=== PATIENT | male | born 1960 | race African-American/Black ===

== ENCOUNTER 2017-08-04 08:22 | Emergency (ER) | payer BC, SELFPAY ==
[2017-08-04] MEDS ORDERED: Labetalol 5 MG/ML 5 ML Syringe IVPUSH ONE ×2 (08:44→09:14)
[2017-08-04] MEDS ORDERED: Sodium Chloride 0.9% 1,000 ML IV SCH (08:45)
--- NOTE | 2017-08-04 08:45 | EDM.PDOC ---
ED HPI GENERAL MEDICAL PROBLEM - General Chief Complaint: Headache Stated Complaint: HEADACHE DIZZINESS AND PAIN RT Time Seen by Provider: 08/04/17 08:45 Source of Information: Reports: Patient - History of Present Illness INITIAL COMMENTS - FREE TEXT/NARRATIVE: HISTORY AND PHYSICAL: History of present illness: [Patient presents with muscle spasm left shoulder girdle rates pain 4 out of 10 nonradiating worsened by moving his left arm reproduce pain with palpation of infraspinatus and essentially the whole trapezius distribution on the left. He states that previously he was having trouble to right side several months ago. No fever nausea vomiting diarrhea constipation chest pain shortness breath headache dizziness palpitation about a urine symptoms Patient has not been taking his blood pressure medication over the last couple days ] Review of systems: As per history of present illness and below otherwise all systems reviewed and negative. Past medical history: As per history of present illness and as reviewed below otherwise noncontributory. Surgical history: As per history of present illness and as reviewed below otherwise noncontributory. Social history: No reported history of drug or alcohol abuse. Family history: As per history of present illness and as reviewed below otherwise noncontributory. Physical exam: HEENT: Atraumatic, normocephalic, pupils reactive, negative for conjunctival pallor or scleral icterus, mucous membranes moist, throat clear, neck supple, nontender, trachea midline. Lungs: Clear to auscultation, breath sounds equal bilaterally, chest nontender. Heart: S1S2, regular, negative for clicks, rubs, or JVD. Abdomen: Soft, nondistended, nontender. Negative for masses or hepatosplenomegaly. Negative for costovertebral tenderness. Pelvis: Stable nontender. Genitourinary: Deferred. Rectal: Deferred. Extremities: Atraumatic, negative for cords or calf pain. Neurovascular unremarkable. Neuro: Awake, alert, oriented. Cranial nerves II through XII unremarkable. Cerebellum unremarkable. Motor and sensory unremarkable throughout. Exam nonfocal. Diagnostics: []CBC CMP UA Therapeutics: []Labetalol 10 mg IV Vasotec 1.25 mg IV Amlodipine 5 mg by mouth Continue medications as prescribed Flexeril Cataflam Impression: []Hypertension uncontrolled Medication noncompliance Muscle spasm Definitive disposition and diagnosis as appropriate pending reevaluation and review of above. Head Pain Score (Numeric/FACES): 9 - Related Data Allergies Allergy/AdvReac Type Severity Reaction Status Date / Time No Known Allergies Allergy Verified 08/04/17 08:33 Home Meds: Home Meds Lisinopril 1 tab PO BRK 02/09/15 [History] amLODIPine Besylate [Amlodipine Besylate] 1 tab PO BRK 02/09/15 [History] Social & Family History - Tobacco Use Smoking Status *Q: Never Smoker Second Hand Smoke Exposure: No - Alcohol Use Days Per Week of Alcohol Use: 0 Number of Drinks Per Day: 0 Total Drinks Per Week: 0 - Recreational Drug Use Recreational Drug Use: No Drug Use in Last 12 Months: No ED ROS GENERAL - Review of Systems Review Of Systems: ROS reveals no pertinent complaints other than HPI. ED EXAM, GENERAL - Physical Exam Exam: See Below Course - Vital Signs Last Recorded V/S: Last Vital Signs Temp 98.2 F 08/04/17 08:37 Pulse 79 08/04/17 09:33 Resp 10 L 08/04/17 09:30 BP 164/109 H 08/04/17 09:41 Pulse Ox 97 08/04/17 09:30 - Orders/Labs/Meds Orders: Active Orders 24 hr Category Date Time Status Cardiac Monitoring [RC] . DIRECTED Care 08/04/17 09:39 Active EKG Documentation Completion [RC] STAT Care 08/04/17 09:31 Active Chest 1V Frontal [CR] Stat Exams 08/04/17 09:31 Ordered CBC WITH AUTO DIFF [HEME] Stat Lab 08/04/17 09:07 Results UA W/MICROSCOPIC [URIN] Stat Lab 08/04/17 08:44 Uncollected Labetalol [Normodyne] Med 08/04/17 09:30 Active 10 mg IVPUSH ASDIRECTED Sodium Chloride 0.9% [Normal Saline] 1,000 ml Med 08/04/17 08:45 Active IV STAT Medication Orders Sodium Chloride (Normal Saline) 1,000 mls @ 125 mls/hr IV STAT SHELLIE Last Admin: 08/04/17 09:30 Dose: 125 mls/hr Labetalol HCl (Normodyne) 10 mg IVPUSH ASDIRECTED SHELLIE Last Admin: 08/04/17 09:33 Dose: 10 mg Labs: Laboratory Tests 08/04/17 08/04/17 Range/Units 09:07 09:07 WBC 6.71 (4.0-11.0) K/uL RBC 4.88 (4.50-5.90) M/uL Hgb 13.4 (13.0-17.0) g/dL Hct 39.6 (38.0-50.0) % MCV 81.1 (80.0-98.0) fL MCH 27.5 (27.0-32.0) pg MCHC 33.8 (31.0-37.0) g/dL RDW Std Deviation 40.0 (28.0-62.0) fl RDW Coeff of Viky 14 (11.0-15.0) % Plt Count 209 (150-400) K/uL MPV 10.60 (7.40-12.00) fL Add Manual Diff YES Nucleated RBC % 0.0 /100WBC Nucleated RBCs # 0 K/uL Sodium 139 (136-146) mmol/L Potassium 3.7 (3.5-5.1) mmol/L Chloride 107 (98-110) mmol/L Carbon Dioxide 23 (21-31) mmol/L BUN 12 (6.0-23.0) mg/dL Creatinine 0.8 (0.6-1.5) mg/dL Est Cr Clr Drug Dosing TNP Estimated GFR (MDRD) > 60.0 ml/min Glucose 110 (60-110) mg/dL Calcium 9.4 (8.8-10.8) mg/dL Total Bilirubin 0.5 (0.1-1.5) mg/dL AST 18 (5-40) IU/L ALT 22 (8-54) IU/L Alkaline Phosphatase 61 (40-150) Total Protein 8.3 H (6.0-8.0) g/dL Albumin 4.1 (3.5-5.0) g/dL Globulin 4.2 H (2.0-3.5) g/dL Albumin/Globulin Ratio 1.0 L (1.3-2.8) Meds: Medications Generic Name Dose Route Start Last Admin Trade Name Freq PRN Reason Stop Dose Admin Sodium Chloride 1,000 mls @ 125 mls/hr 08/04/17 08:45 08/04/17 09:30 Normal Saline IV 125 mls/hr STAT SHELLIE Administration Labetalol HCl 10 mg 08/04/17 09:30 08/04/17 09:33 Normodyne IVPUSH 10 mg ASDIRECTED SHELLIE Administration Discontinued Medications Generic Name Dose Route Start Last Admin Trade Name Tammy PRN Reason Stop Dose Admin Amlodipine Besylate 5 mg 08/04/17 09:15 Norvasc PO 08/04/17 09:16 ONETIME ONE Enalaprilat 1.25 mg 08/04/17 09:14 08/04/17 09:41 Vasotec Iv IVPUSH 08/04/17 09:15 1.25 mg ONETIME ONE Administration Labetalol HCl 10 mg 08/04/17 08:44 08/04/17 09:31 Normodyne IVPUSH 08/04/17 08:45 Not Given .BOLUS ONE Protocol Labetalol HCl 10 mg 08/04/17 09:14 08/04/17 09:30 Normodyne IVPUSH 08/04/17 09:15 Not Given .BOLUS ONE Protocol Departure - Departure Time of Disposition: 09:45 Disposition: Home, Self-Care 01 Condition: Good Clinical Impression: Muscle spasm, Hypertension - Discharge Information Referrals: Edwin Singleton DO [Primary Care Provider] - Forms: ED Department Discharge Additional Instructions: Continue home medications as directed Medications as prescribed Return if symptoms persist or worsen Follow-up with her primary doctor to optimize medical management of your high blood pressure The following information is given to patients seen in the emergency department who are being discharged to home. This information is to outline your options for follow-up care. We provide all patients seen in our emergency department with a follow-up referral. The need for follow-up, as well as the timing and circumstances, are variable depending upon the specifics of your emergency department visit. If you don't have a primary care physician on staff, we will provide you with a referral. We always advise you to contact your personal physician following an emergency department visit to inform them of the circumstance of the visit and for follow-up with them and/or the need for any referrals to a consulting specialist. The emergency department will also refer you to a specialist when appropriate. This referral assures that you have the opportunity for follow-up care with a specialist. All of these measure are taken in an effort to provide you with optimal care, which includes your follow-up. Under all circumstances we always encourage you to contact your private physician who remains a resource for coordinating your care. When calling for follow-up care, please make the office aware that this follow-up is from your recent emergency room visit. If for any reason you are refused follow-up, please contact the [facility] emergency department at and asked to speak to the emergency department charge nurse. - My Orders Last 24 Hours: My Active Orders 08/04/17 08:44 UA W/MICROSCOPIC [URIN] Stat 08/04/17 08:45 Sodium Chloride 0.9% [Normal Saline] 1,000 ml IV STAT 08/04/17 09:07 CBC WITH AUTO DIFF [HEME] Stat 08/04/17 09:30 Labetalol [Normodyne] 10 mg IVPUSH ASDIRECTED 08/04/17 09:31 EKG Documentation Completion [RC] STAT Chest 1V Frontal [CR] Stat 08/04/17 09:39 Cardiac Monitoring [RC] . DIRECTED - Assessment/Plan Last 24 Hours: My Active Orders 08/04/17 08:44 UA W/MICROSCOPIC [URIN] Stat 08/04/17 08:45 Sodium Chloride 0.9% [Normal Saline] 1,000 ml IV STAT 08/04/17 09:07 CBC WITH AUTO DIFF [HEME] Stat 08/04/17 09:30 Labetalol [Normodyne] 10 mg IVPUSH ASDIRECTED 08/04/17 09:31 EKG Documentation Completion [RC] STAT Chest 1V Frontal [CR] Stat 08/04/17 09:39 Cardiac Monitoring [RC] . DIRECTED
[2017-08-04] MEDS ORDERED: Enalaprilat 1.25 MG/ML SDV IVPUSH ONE (09:14)
[2017-08-04] MEDS ORDERED: amLODIPine 5 MG Tab PO ONE (09:15)
[2017-08-04] MEDS ORDERED: Labetalol 100 MG/20 ML MDV IVPUSH SCH (09:30)
[2017-08-04 09:35] LABS: CHLORIDE,CL 107 mmol/L (98-110); SODIUM,NA 139 mmol/L (136-146)
--- NOTE | 2017-08-04 10:12 | CR ---
EXAMINATION: Portable chest radiograph. HISTORY: Shortness of breath. FINDINGS: The trachea is midline. The cardiomediastinal silhouette is within normal limits. No pulmonary infilt rates, effusions or pneumothorax. Osseous structures appear unremarkable. IMPRESSION: No acute cardiopulmonary process.
[2017-08-04 10:42] VITALS: BP 151/103
== END 2017-08-04 10:37 | disposition home or self-care (01) ==
LOC: MW.ED 08:22
DX: M62.838 Other muscle spasm (principal); I10 Essential (primary) hypertension; Z91.14 Patient's other noncompliance with medication regimen
CPT/HCPCS: 36415; 71010; 80053; 85025; 93005; 96361; 96374; 96375; 99284; A9270; J7040; 99282

== ENCOUNTER 2019-04-17 07:47 | Day surgery (SDC) | payer BC ==
[~2019-04-17 07:47] MED LIST: Lactated Ringers 1,000 ML IV SCH; Midazolam 1 MG/ML 2 ML SDV ONE; Propofol 200 MG/20 ML SDV ONE
--- NOTE | 2019-04-17 09:04 | PCM.PREANE ---
Preanesthetic Assessment - Anesthesia/Transfusion/Family Hx Anesthesia History: Prior Anesthesia Without Reaction Other Type of Anesthesia Reaction Comment: Denies any known problem in past Family History of Anesthesia Reaction: No Transfusion History: No Prior Transfusion(s) Intubation History: Unknown - Review of Systems General: No Symptoms Pulmonary: No Symptoms Cardiovascular: No Symptoms Gastrointestinal: Abdominal Pain Neurological: No Symptoms Other: Reports: None - Physical Assessment Height: 5 ft 11 in Weight: 77.111 kg ASA Class: 2 Mental Status: Alert & Oriented x3 Airway Class: Mallampati = 2 Dentition: Reports: Normal Dentition, Missing Tooth/Teeth (multiple teeth missing) Thyro-Mental Finger Breadths: 3 Mouth Opening Finger Breadths: 3 ROM/Head Extension: Full Lungs: Clear to Auscultation, Normal Respiratory Effort Cardiovascular: Regular Rate, Regular Rhythm - Allergies Allergies/Adverse Reactions: Allergies Allergy/AdvReac Type Severity Reaction Status Date / Time No Known Allergies Allergy Verified 04/08/19 12:44 - Blood Blood Available: No - Anesthesia Plan Pre-Op Medication Ordered: None - Acknowledgements Anesthesia Type Planned: MAC Pt an Appropriate Candidate for the Planned Anesthesia: Yes Alternatives and Risks of Anesthesia Discussed w Pt/Guardian: Yes Pt/Guardian Understands and Agrees with Anesthesia Plan: Yes PreAnesthesia Questionnaire Cardiovascular History: Reports: Hypertension Genitourinary History: Reports: Other (See Below) (s/p lt. orchiectomy '16 for undescended testicle) Musculoskeletal History: Reports: Back Pain, Chronic - Past Surgical History GI Surgical History: Reports: Hernia, Inguinal (left x2) Male Surgical History: Reports: Other (See Below) Other Male Surgeries/Procedures: left orchiectomy - SUBSTANCE USE Smoking Status *Q: Never Smoker Recreational Drug Use History: No - HOME MEDS Home Medications: Home Meds Lisinopril 1 tab PO BRK 02/09/15 [History] amLODIPine Besylate [Amlodipine Besylate] 1 tab PO BRK 02/09/15 [History] Acetaminophen [Tylenol] 1 - 2 tab PO ASDIRECTED PRN 04/08/19 [History] - CURRENT (IN HOUSE) MEDS Current Meds: Current Medications Lactated Ringer's (Ringers, Lactated) 1,000 mls @ 125 mls/hr IV ASDIRECTED SHELLIE Discontinued Medications Midazolam HCl (Versed 1 Mg/Ml) Confirm Administered Dose 2 mg .ROUTE .STK-MED ONE Stop: 04/17/19 07:25 Propofol (Diprivan 20 Ml) Confirm Administered Dose 400 mg .ROUTE .STK-MED ONE Stop: 04/17/19 07:25
--- NOTE | 2019-04-17 10:34 | PCM.OPNOTE ---
- General Post-Op/Procedure Note Date of Surgery/Procedure: 04/17/19 Operative Procedure(s): 1) colonoscopy and,. 2) gastroscopy w bx Findings: see dict [id number] Pre Op Diagnosis: scrn colonoscopy and gerd Post-Op Diagnosis: Same Anesthesia Technique: Moderate Sedation Primary Surgeon: Jsoh Suárez Pathology: egd bx Complications: None Condition: Good
--- NOTE | 2019-04-17 10:56 | PCM48HPAN ---
Post Anesthesia Note - EVALUATION WITHIN 48HRS OF ANESTHETIC Vital Signs in Normal Range: Yes Patient Participated in Evaluation: Yes Respiratory Function Stable: Yes Airway Patent: Yes Cardiovascular Function Stable: Yes Hydration Status Stable: Yes Pain Control Satisfactory: Yes Nausea and Vomiting Control Satisfactory: Yes Mental Status Recovered: Yes Resp Rate: 18 - COMMENTS/OBSERVATIONS Free Text/Narrative:: no anesthesia problems
--- NOTE | 2019-04-17 11:29 | OR ---
SURGEON: Josh Suárez MD DATE OF PROCEDURE: 04/17/2019 PREOPERATIVE DIAGNOSES: Gastroesophageal reflux disease and screening colonoscopy. POSTOPERATIVE DIAGNOSES: Gastroesophageal reflux disease and screening colonoscopy. PROCEDURES PERFORMED: Esophagogastroduodenoscopy with biopsy and colonoscopy. DESCRIPTION OF PROCEDURE: EGD: The patient was taken to the endoscopy room, and with the DELINEATOR, Diprivan was administered. A well-lubricated EGD scope was gently inserted through the oropharynx, down the esophagus, passing through the gastroesophageal junction, into the stomach. The mucosa was examined upon the passage. Any etiology will be noted. Once in the stomach, we continued to advance to the distal antrum, passed through the pylorus into the second portion of the duodenum. Again, the mucosa was examined for any abnormality and etiology. The scope was then retrieved back to the stomach and then retroflexed to look at the fundus of the stomach. If a biopsy was indicated, we will biopsy the antrum, body, and gastroesophageal junction. The air will be sucked out while the scope is retrieved to reduce the patient's discomfort. The patient tolerated the procedure well. There were no intraoperative complications. Dr. Suárez was present through the whole procedure. Prior to surgery, a time-out had been called, the patient identified, procedure identified and antibiotic administered. The patient was taken to the endoscopy room. A time out was called, patient identified, and procedure identified. Diprivan was then administrated. Patient went from awake to sleep, hearing doctor talking or door closing is normal. Perineum inspection and digital examination were then performed. A well- lubricated colonoscope was gently inserted through the rectum, advanced past the rectosigmoid junction, the descending colon, splenic flexure, transverse colon, hepatic flexure, ascending colon, arrived to the cecum. Cecum was identified as dictated in the finding. Then the scope was carefully withdrawn while attention was paid to the mucosal surface for any abnormality. Air will be sucked out during the scope withdrawal. At the rectum, retroflexed to examine any rectal diseases, fistula or hemorrhoids. Patient tolerated procedure well. There were no intraoperative complications, and Dr. Suárez was present throughout the whole procedure. FINDINGS: EGD findings: 1. The patient is easily sedated with DELINEATOR and Diprivan, the patient is soundly snoring. 2. Oropharynx and proximal esophagus are free of disease, stricture, or inflammation. Distal esophagus at GE junction at 40 shows significant salmon-colored change consistent with acid reflux, moderate, not significant. Stomach rugae are flattened, suggest increased acid production. Antrum looks mildly inflamed. Duodenum is grossly normal. Retroflexed look at the fundus of the stomach and there is a small hiatal hernia observed. Biopsy done at antrum, body, GE junction at 40, and sucked out the gas while scope pulling out. During the whole study, there is no food, blood, ulcer, or bile observed. Colonoscopy findings: 1. The patient is easily sedated with DELINEATOR and Diprivan, the patient is soundly snoring. 2. Bowel prep is average, moderate amount of liquid stool, no semi-formed stool. 3. Colon rather straightforward. Cecum indicated by ileocecal fold, one-to- one indentation, and appendiceal orifice. Light emittance is not observed. Mucosa examined upon scope pulling out. The patient does not have diverticulosis, polyp, mass, growth, inflammation, stricture, ulceration, AV malformation, none of those. The patient has mild internal hemorrhoid and mild external hemorrhoid. The patient would benefit from a repeat colonoscopy in 10 years from today or if clinically indicated otherwise. ELO / CECILE /[id number]
[2019-04-17 12:39] VITALS: BP 146/97; PULSE 77
== END 2019-04-17 11:25 | disposition home or self-care (01) ==
LOC: MW.SDS 07:47
PROVIDERS: ATTEND Surgery
DX: Z12.11 Encounter for screening for malignant neoplasm of colon (principal); K21.0 Gastro-esophageal reflux disease with esophagitis; K29.50 Unspecified chronic gastritis without bleeding; K64.8 Other hemorrhoids; K64.4 Residual hemorrhoidal skin tags; I10 Essential (primary) hypertension; Z98.890 Other specified postprocedural states; Z79.899 Other long term (current) drug therapy
CPT/HCPCS: 43239; 45378; J2250; J2704; J7120; 88305; 88312